=== PATIENT | male | born 1980 | race Caucasian/White ===

== ENCOUNTER 2017-02-23 14:14 | Emergency (ER) | payer BC, MEDICAID ==
[2017-02-23] MEDS ORDERED: Ketorolac 60 MG/2 ML SDV IM ONE (14:55)
--- NOTE | 2017-02-23 15:19 | EDM.PDOC ---
ED HPI LOWER BACK PAIN/INJURY - General Chief Complaint: Back Pain or Injury Stated Complaint: BACK Time Seen by Provider: 02/23/17 14:50 Source of Information: Reports: Patient History Limitations: Reports: No limitations - History of Present Illness INITIAL COMMENTS - FREE TEXT/NARRATIVE: History of present illness: [36-year-old male comes in complaining of acute low back pain radiating down to bilateral legs. Patient has a history of significant trauma to left leg and hip area approximately a year ago. Patient indicated it was a crushing injury on the [place] and he had altered gait for protracted period of time. Now he comes in with guarding, as well as symptoms of radiculopathy and some neuropathic pain.] Review of systems: As per history of present illness and below otherwise all systems reviewed and negative. Past medical history: As per history of present illness and as reviewed below otherwise noncontributory. Surgical history: As per history of present illness and as reviewed below otherwise noncontributory. Social history: No reported history of drug or alcohol abuse. Family history: As per history of present illness and as reviewed below otherwise noncontributory. Physical exam: HEENT: Atraumatic, normocephalic, pupils reactive, negative for conjunctival pallor or scleral icterus, mucous membranes moist, throat clear, neck supple, nontender, trachea midline. Lungs: Clear to auscultation, breath sounds equal bilaterally, chest nontender. Heart: S1S2, regular, negative for clicks, rubs, or JVD. Abdomen: Soft, nondistended, nontender. Negative for masses or hepatosplenomegaly. Negative for costovertebral tenderness. Pelvis: Stable nontender. Genitourinary: Deferred. Rectal: Deferred. Extremities: Atraumatic, negative for cords or calf pain. Neurovascular unremarkable. Neuro: Awake, alert, oriented. Cranial nerves II through XII unremarkable. Cerebellum unremarkable. Motor and sensory unremarkable throughout. Exam nonfocal. Global assessment is benign save some point tenderness at the base of spine and on venous distress. Patient indicates any limitations are secondary to avoidance of pain. Diagnostics: [X-ray of lumbar spine sacrum and coccyx] Therapeutics: [60 mg Toradol IM] Impression: [Back Pain] Plan: [Muscle relaxers and pain meds followup with PCP] Definitive disposition and diagnosis as appropriate pending reevaluation and review of above. - Related Data Allergies/ADRs: Allergies Allergy/AdvReac Type Severity Reaction Status Date / Time No Known Allergies Allergy Verified 02/23/17 14:27 Home Meds: Home Meds Orphenadrine [Norflex] 100 mg PO BID #30 tab.er 02/23/17 [Rx] Past Medical History - Past Health History Medical/Surgical History: Denies Medical/Surgical History Musculoskeletal History: Reports: Back pain, chronic Social & Family History - Family History Family Medical History: Noncontributory - Tobacco Use Smoking Status *Q: Current Every Day Smoker Years of Tobacco use: 8 - Recreational Drug Use Recreational Drug Use: No ED ROS GENERAL - Review of Systems Review Of Systems: See Below (See history of present illness) ED EXAM,LOWER BACK PAIN/INJURY - Physical Exam Exam: See Below (See history of present illness) Course - Vital Signs Last Recorded V/S: Last Vital Signs Temp 36.7 C 02/23/17 14:24 Pulse 85 02/23/17 14:24 Resp 16 02/23/17 14:24 BP 145/69 H 02/23/17 14:24 Pulse Ox 95 02/23/17 14:24 - Orders/Labs/Meds Orders: Active Orders 24 hr Category Date Time Status Lumbar Spine 2 or 3V [CR] Stat Exams 02/23/17 14:44 Taken Sacrum Coccyx Min 2V [CR] Stat Exams 02/23/17 14:44 Taken Ondansetron [Zofran ODT] Med 02/23/17 16:16 Ordered 8 mg PO ONETIME PRN Medication Orders Ondansetron HCl (Zofran Odt) 8 mg PO ONETIME PRN PRN Reason: Nausea/Vomiting Meds: Medications Generic Name Dose Route Start Last Admin Trade Name Freq PRN Reason Stop Dose Admin Ondansetron HCl 8 mg 02/23/17 16:16 Zofran Odt PO ONETIME PRN Nausea/Vomiting Discontinued Medications Generic Name Dose Route Start Last Admin Trade Name Freq PRN Reason Stop Dose Admin Ketorolac Tromethamine 60 mg 02/23/17 14:55 02/23/17 15:10 Toradol IM 02/23/17 14:56 60 mg ONETIME ONE Administration Morphine Sulfate 4 mg 02/23/17 16:15 Morphine IM 02/23/17 16:16 ONETIME ONE Departure - Departure Time of Disposition: 16:17 Disposition: Home, Self-Care 01 Condition: good Clinical Impression: Low back pain Qualifiers: Chronicity: acute Back pain laterality: bilateral Sciatica presence: with sciatica Sciatica laterality: bilateral sciatica Qualified Code(s): M54.42 - Lumbago with sciatica, left side; M54.41 - Lumbago with sciatica, right side Referrals: PCP,None [Primary Care Provider] - Gala Rosales PA [Physician Log Operations Coordinator] - Forms: ED Department Discharge Additional Instructions: The following information is given to patients seen in the emergency department who are being discharged to home. This information is to outline your options for follow-up care. We provide all patients seen in our emergency department with a follow-up referral. The need for follow-up, as well as the timing and circumstances, are variable depending upon the specifics of your emergency department visit. If you don't have a primary care physician on staff, we will provide you with a referral. We always advise you to contact your personal physician following an emergency department visit to inform them of the circumstance of the visit and for follow-up with them and/or the need for any referrals to a consulting specialist. The emergency department will also refer you to a specialist when appropriate. This referral assures that you have the opportunity for follow-up care with a specialist. All of these measure are taken in an effort to provide you with optimal care, which includes your follow-up. Under all circumstances we always encourage you to contact your private physician who remains a resource for coordinating your care. When calling for follow-up care, please make the office aware that this follow-up is from your recent emergency room visit. If for any reason you are refused follow-up, please contact the [facility] Emergency Department at and asked to speak to the emergency department charge nurse. Take medication as directed Followup with PCP in one to 2 days Turned ED as needed as discussed [facility] Primary Care [address] [place] [id number] - My Orders Last 24 Hours: My Active Orders 02/23/17 14:44 Lumbar Spine 2 or 3V [CR] Stat Sacrum Coccyx Min 2V [CR] Stat 02/23/17 16:16 Ondansetron [Zofran ODT] 8 mg PO ONETIME PRN - Assessment/Plan Last 24 Hours: My Active Orders 02/23/17 14:44 Lumbar Spine 2 or 3V [CR] Stat Sacrum Coccyx Min 2V [CR] Stat 02/23/17 16:16 Ondansetron [Zofran ODT] 8 mg PO ONETIME PRN
[2017-02-23] MEDS ORDERED: Morphine 2 MG/ML Syringe IM ONE (16:15)
[2017-02-23] MEDS ORDERED: Ondansetron 4 MG Tab.DIS PO PRN (16:16)
[2017-02-23 16:36] VITALS: BP 118/71
--- NOTE | 2017-02-23 16:43 | CR ---
EXAM DATE: 02/23/17 PATIENT'S AGE: 36 Patient: ANA ROSA GARCIA Facility: [place], [place] Site . Site : 1980 Study: XRay Spine Lumbar [id number]/10/2017 3:57:49 PM Ordering Physician: Doctor Dorantes Final Report: INDICATION: lower back pain TECHNIQUE: Lumbar spine 3 view COMPARISON: None FINDINGS: Bones: No fractures or significant bone lesions. Joints: Disc spaces and facets are unremarkable. Soft tissues: Unremarkable. IMPRESSION: No acute bony abnormality of the lumbar spine. Dictated by Julian Mccormick MD @ 02/23/2017 4:07:32 PM Dictated by: Julian Mccormick MD @ 02/23/2017 16:08:40 (Electronic Signature) Report Signed by Proxy and Original Signed Document filed in the Medical Record. [email or web address]
--- NOTE | 2017-02-23 16:44 | CR ---
EXAM DATE: 02/23/17 PATIENT'S AGE: 36 Patient: ANA ROSA GARCIA Facility: [place], [place] Site . Site : 1980 Study: XRay Spine sacrum [id number]/10/2017 3:58:42 PM Ordering Physician: Doctor Dorantes Final Report: INDICATION: lower back pain TECHNIQUE: Three views of the sacrum/coccyx COMPARISON: None FINDINGS: Bones: No fractures or bone lesions. Joint spaces: Unremarkable. Soft tissues: Unremarkable. IMPRESSION: No acute bony abnormality. Dictated by Julian Mccormick MD @ 02/23/2017 4:10:36 PM Dictated by: Julian Mccormick MD @ 02/23/2017 16:10:45 (Electronic Signature) Report Signed by Proxy and Original Signed Document filed in the Medical Record. MTDD
== END 2017-02-23 16:45 | disposition home or self-care (01) ==
LOC: MW.ED 14:14
DX: M54.41 Lumbago with sciatica, right side (principal); M54.42 Lumbago with sciatica, left side; F17.210 Nicotine dependence, cigarettes, uncomplicated
CPT/HCPCS: 72100; 72220; 96372; 99285; A9270; J1885; J2270; 99284

== ENCOUNTER 2017-02-24 00:56 | Emergency (ER) | payer SELFPAY ==
[2017-02-24] MEDS ORDERED: Sodium Chloride 0.9% 2.5 ML Syringe FLUSH PRN (01:25)
[2017-02-24] MEDS ORDERED: HYDROmorphone 2 MG/ML Syringe IVPUSH ONE (01:25)
[2017-02-24] MEDS ORDERED: Sodium Chloride 0.9% 10 ML Syringe FLUSH PRN (01:25)
[2017-02-24] MEDS ORDERED: Ondansetron 4 MG/2 ML SDV IVPUSH ONE (01:25)
[2017-02-24] MEDS ORDERED: Ketorolac 30 MG/ML SDV IVPUSH ONE (01:25)
--- NOTE | 2017-02-24 01:29 | EDM.PDOC ---
ED HPI GENERAL MEDICAL PROBLEM - General Chief Complaint: Back Pain or Injury Stated Complaint: BACK PAIN Time Seen by Provider: 02/24/17 01:17 - History of Present Illness INITIAL COMMENTS - FREE TEXT/NARRATIVE: HISTORY AND PHYSICAL: History of present illness: The patient is a 36 old male who presents with lumbar back pain radiating to his legs with radiculopathy for which he was seen earlier today for. Patient states he had a history of trauma 5 years ago since that time has had issues with his left hip and leg and has an unbalanced gait causing him to have on and off lower back pain. He says that once a year he gets discomfort like he is experiencing now but is never seen a physician or had an MRI to make a formal diagnosis. He says the pain is always localized in his lumbar spine and radiates to both buttock cheeks and down his legs and is doing similarly right now. He says it usually is worse on the left side and there is associated numbness and tingling on the left leg which is typical of his episodes. There is nothing new or different about this pain but it is not being controlled with the meds she received earlier, Norflex and [place]. He denies any flank pain he has no urinary retention or urinary issues and no bowel disturbances. He has had no anterior abdominal pain and has had no recent trauma. The patient states that the pain is just not controlled with the meds he received for discharge and got Toradol while he was here. I reviewed the chart and the x-rays that were performed, lumbar spine and coccyx films Please note that there is nothing new in the character or location of this pain is just that is more intense than usual; also the numbness that he is feeling and decreased sensation in his left leg is also not new Review of systems: As per history of present illness and below otherwise all systems reviewed and negative. Past medical history: As per history of present illness and as reviewed below otherwise noncontributory. Surgical history: As per history of present illness and as reviewed below otherwise noncontributory. Social history: No reported history of drug or alcohol abuse. Family history: As per history of present illness and as reviewed below otherwise noncontributory. Physical exam: General: Well-developed well nourished male who is nontoxic and looks uncomfortable in the room but is able to move in the bed with discomfort but without weakness or deficiencies. HEENT: Atraumatic, normocephalic, negative for conjunctival pallor or scleral icterus, mucous membranes moist, throat clear, neck supple, nontender, trachea midline. Lungs: Clear to auscultation, breath sounds equal bilaterally, chest nontender. Heart: S1S2, regular, negative for clicks, rubs, or JVD. Abdomen: Soft, nondistended, nontender. Negative for masses or hepatosplenomegaly. Negative for costovertebral tenderness. Pelvis: Stable nontender. Genitourinary: Deferred. Rectal: Normal perianal sensation, normal rectal tone push and squeeze Extremities: Atraumatic, negative for cords or calf pain. Neurovascular unremarkable. Neuro: Awake, alert, oriented. Cranial nerves II through XII unremarkable. Cerebellum unremarkable. Motor and sensory unremarkable throughout with a slight decreased sensation of the left lower extremity mostly below the knee. Patellar reflexes are +2/4 and brisk bilaterally. Dorsi and plantar flexion is intact 5/5 bilaterally inclusive of the great toe, inversion and eversion of the feet are also intact. Back: There are no midline step-offs in his defects the thoracic or lumbar spine and there is some reproducible tenderness at palpation of the lower lumbar sacral area and bilateral buttocks cheeks. Diagnostics: CT lumbar spine UA urine culture Therapeutics: Dilaudid Zofran Toradol andSolu- Medrol The patient states he is feeling better but is not completely gone. I've asked him about STD risks and he denies any so I will send a urine culture. I discussed with the patient his CT scan results and the need to get a nonemergent MRI as a followup as well as followup care with primary care. I will place him on a prednisone burst as well as Percocet for pain and give him off work today and tomorrow in an effort to get this under some control. The patient is aware of reasons to return to the ED and report and need for followup of this condition. Impression: Mild disc herniation L4-L5 with acute on chronic pain and radiculopathy Definitive disposition and diagnosis as appropriate pending reevaluation and review of above. Back Pain Score (Numeric/FACES): 10 - Related Data Allergies Allergy/AdvReac Type Severity Reaction Status Date / Time No Known Allergies Allergy Verified 02/24/17 01:22 Home Meds: Home Meds Orphenadrine [Norflex] 100 mg PO BID #30 tab.er 02/23/17 [Rx] Acetaminophen/HYDROcodone [[place] 325-5 MG] 1 tab PO Q6H 02/24/17 [History] Past Medical History - Past Health History Medical/Surgical History: Denies Medical/Surgical History Musculoskeletal History: Reports: Back pain, chronic Social & Family History - Family History Family Medical History: Noncontributory - Tobacco Use Smoking Status *Q: Current Every Day Smoker Years of Tobacco use: 8 Packs/Tins Daily: 1 - Caffeine Use Caffeine Use: Reports: Coffee, Tea - Recreational Drug Use Recreational Drug Use: No Drug Use in Last 12 Months: Yes Recreational Drug Type: Reports: Marijuana/Hashish ED ROS GENERAL - Review of Systems Review Of Systems: ROS reveals no pertinent complaints other than HPI. ED EXAM, GENERAL - Physical Exam Exam: See Below (See dictation) Course - Vital Signs Last Recorded V/S: Last Vital Signs Temp 36.7 C 02/24/17 01:19 Pulse 67 02/24/17 01:19 Resp 20 02/24/17 01:19 BP 139/63 02/24/17 01:19 Pulse Ox 97 02/24/17 01:19 - Orders/Labs/Meds Orders: Active Orders 24 hr Category Date Time Status Lumbar Spine wo Cont [CT] Stat Exams 02/24/17 01:24 Taken CULTURE URINE [RM] Stat Lab 02/24/17 03:09 Ordered Sodium Chloride 0.9% [Saline Flush] Med 02/24/17 01:25 Active 10 ml FLUSH ASDIRECTED PRN Sodium Chloride 0.9% [Saline Flush] Med 02/24/17 01:25 Active 2.5 ml FLUSH ASDIRECTED PRN Saline Lock Insert [OM.PC] Stat Oth 02/24/17 01:24 Ordered Medication Orders Sodium Chloride (Saline Flush) 10 ml FLUSH ASDIRECTED PRN PRN Reason: Keep Vein Open Last Admin: 02/24/17 01:54 Dose: 10 ml Sodium Chloride (Saline Flush) 2.5 ml FLUSH ASDIRECTED PRN PRN Reason: Keep Vein Open Last Admin: 02/24/17 01:54 Dose: 2.5 ml Labs: Laboratory Tests 02/24/17 Range/Units 02:47 Urine Color DARK YELLOW Urine Appearance SLT CLOUDY Urine pH 6.0 (5.0-8.0) Ur Specific [place] >= 1.030 (1.001-1.035) Urine Protein NEGATIVE (NEGATIVE) mg/dL Urine Glucose (UA) NEGATIVE (NEGATIVE) mg/dL Urine Ketones NEGATIVE (NEGATIVE) mg/dL Urine Occult Blood NEGATIVE (NEGATIVE) Urine Nitrite NEGATIVE (NEGATIVE) Urine Bilirubin NEGATIVE (NEGATIVE) Urine Urobilinogen 0.2 (<2.0) EU/dL Ur Leukocyte Esterase NEGATIVE (NEGATIVE) Urine RBC 0-2 (0-2/HPF) Urine WBC 2-5 (0-5/HPF) Ur Epithelial Cells OCCASIONAL (NONE-FEW) Urine Bacteria FEW (NEGATIVE) Urine Mucus HEAVY (NONE-MOD) Meds: Medications Generic Name Dose Route Start Last Admin Trade Name Freq PRN Reason Stop Dose Admin Sodium Chloride 10 ml 02/24/17 01:25 02/24/17 01:54 Saline Flush FLUSH 10 ml ASDIRECTED PRN Administration Keep Vein Open Sodium Chloride 2.5 ml 02/24/17 01:25 02/24/17 01:54 Saline Flush FLUSH 2.5 ml ASDIRECTED PRN Administration Keep Vein Open Discontinued Medications Generic Name Dose Route Start Last Admin Trade Name Freq PRN Reason Stop Dose Admin Hydromorphone HCl 1 mg 02/24/17 01:25 02/24/17 01:55 Dilaudid IVPUSH 02/24/17 01:26 1 mg ONETIME ONE Administration Ketorolac Tromethamine 30 mg 02/24/17 01:25 02/24/17 01:49 Toradol IVPUSH 02/24/17 01:26 30 mg ONETIME ONE Administration Methylprednisolone Sodium Succinate 125 mg 02/24/17 01:50 02/24/17 01:53 Solu-Medrol IVPUSH 02/24/17 01:51 125 mg ONETIME ONE Administration Ondansetron HCl 4 mg 02/24/17 01:25 02/24/17 01:49 Zofran IVPUSH 02/24/17 01:26 4 mg ONETIME ONE Administration Departure - Departure Time of Disposition: 03:17 Disposition: Home, Self-Care 01 Condition: good Clinical Impression: Intervertebral disc herniation Qualifiers: Spinal region: lumbosacral Qualified Code(s): M51.27 - Other intervertebral disc displacement, lumbosacral region Radiculopathy Qualifiers: Spinal region: lumbar Qualified Code(s): M54.16 - Radiculopathy, lumbar region Forms: ED Department Discharge Additional Instructions: The following information is given to patients seen in the emergency department who are being discharged to home. This information is to outline your options for follow-up care. We provide all patients seen in our emergency department with a follow-up referral. The need for follow-up, as well as the timing and circumstances, are variable depending upon the specifics of your emergency department visit. If you don't have a primary care physician on staff, we will provide you with a referral. We always advise you to contact your personal physician following an emergency department visit to inform them of the circumstance of the visit and for follow-up with them and/or the need for any referrals to a consulting specialist. The emergency department will also refer you to a specialist when appropriate. This referral assures that you have the opportunity for followup care with a specialist. All of these measure are taken in an effort to provide you with optimal care, which includes your followup. Under all circumstances we always encourage you to contact your private physician who remains a resource for coordinating your care. When calling for followup care, please make the office aware that this follow-up is from your recent emergency room visit. If for any reason you are refused follow-up, please contact the [facility] emergency department at and ask to speak to the emergency department charge nurse. [facility] Primary care- Internal Medicine and Family [address] [address] Please continue to use the medications you have, Norflex and [place], or stuffy [place] and add the Percocet as prescribed tonight. Please take the prednisone as directed. Please try to rest as much as possible but also try to stretch and move around intermittently to keep the area open and the muscles from spasming. Please call and followup with primary care for further evaluation and treatment of this problem and to schedule outpatient MRI. Return to ER as needed and as we discussed - My Orders Last 24 Hours: My Active Orders 02/24/17 01:24 Lumbar Spine wo Cont [CT] Stat Saline Lock Insert [OM.PC] Stat 02/24/17 01:25 Sodium Chloride 0.9% [Saline Flush] 10 ml FLUSH ASDIRECTED PRN Sodium Chloride 0.9% [Saline Flush] 2.5 ml FLUSH ASDIRECTED PRN 02/24/17 03:09 CULTURE URINE [RM] Stat - Assessment/Plan Last 24 Hours: My Active Orders 02/24/17 01:24 Lumbar Spine wo Cont [CT] Stat Saline Lock Insert [OM.PC] Stat 02/24/17 01:25 Sodium Chloride 0.9% [Saline Flush] 10 ml FLUSH ASDIRECTED PRN Sodium Chloride 0.9% [Saline Flush] 2.5 ml FLUSH ASDIRECTED PRN 02/24/17 03:09 CULTURE URINE [RM] Stat
[2017-02-24] MEDS ORDERED: methylPREDNISolone Sodium Succinate 125 MG/2 ML SDV IVPUSH ONE (01:50)
[2017-02-24 03:56] VITALS: BP 129/61
--- NOTE | 2017-02-24 14:36 | CT ---
EXAM DATE: 02/24/17 PATIENT'S AGE: 36 Patient: ANA ROSA GARCIA Facility: [place], [place] Site . Site : 1980 Study: CT Spine Lumbar WO CONT [id number]/11/2017 2:29:46 AM Ordering Physician: Kristi Eaton Final Report: INDICATION: Lower back pain since Thursday with no known injury. Radiculopathy and back pain more on the left. TECHNIQUE: CT lumbar spine without contrast. COMPARISON: None. FINDINGS: No acute fracture, malalignment or cortical bony central canal compromise. No suspicious lytic or sclerotic osseous lesion. There are minimal degenerative changes. Small posterior disc osteophyte complex at L5-S1. Mild diffuse disc bulge suspected at L4-5. Central canal has images otherwise unremarkable. Critical bony central canal compromise. Soft tissues elsewhere as imaged are unremarkable. IMPRESSION: No acute or suspicious osseous abnormality in the lumbar spine. Minimal degenerative changes. Small posterior disc osteophyte complex at L5-S1 and mild diffuse disc bulge suspected at L4-5. Followup nonemergent MRI of the lumbar spine could be considered for further evaluation as necessary. Dictated by Ethan Miller MD @ 02/24/2017 3:00:48 AM Dictated by: Ethan Miller MD @ 02/24/2017 03:02:53 (Electronic Signature) Report Signed by Proxy and Original Signed Document filed in the Medical Record. [facility]ITALRafael
== END 2017-02-24 03:51 | disposition home or self-care (01) ==
LOC: MW.ED 00:56
DX: M51.16 Intervertebral disc disorders with radiculopathy, lumbar region (principal); R20.8 Other disturbances of skin sensation; F17.200 Nicotine dependence, unspecified, uncomplicated; Z79.899 Other long term (current) drug therapy
CPT/HCPCS: 72131; 81001; 87086; 96374; 96375; 99284; J1170; J1885; J2405; J2930

== ENCOUNTER 2021-08-27 17:15 | Emergency (ER) | payer MEDICAID ==
[2021-08-27] MEDS ORDERED: Bupivacaine 0.5% 10 ML SDV INJECT ONE (19:31)
[2021-08-27] MEDS ORDERED: Diphtheria,Pertussis(Acell),Tetanus Vaccine 0.5 ML Syringe IM ONE (19:31)
--- NOTE | 2021-08-27 20:15 | EDM.PDOC ---
ED HPI GENERAL MEDICAL PROBLEM - General Chief Complaint: Upper Extremity Injury/Pain Stated Complaint: NAIL IN LT THUMB Time Seen by Provider: 08/27/21 19:21 Source of Information: Reports: Patient History Limitations: Reports: No Limitations - History of Present Illness INITIAL COMMENTS - FREE TEXT/NARRATIVE: HISTORY AND PHYSICAL: History of present illness: Patient is a 40-year-old male, who resents emergency room today with concern of a nail in the tissue of his left hand thumb. Patient states that he was using a nail gun to put together a fence and states that it went through his thumb. Patient states that he is fully able to move the thumb and did try to remove it at home but was unable to due to the pain. Patient states that he is not up-to-date on tetanus and would like to update this today. Patient denies fever, chills, chest pain, shortness of breath, or cough. Denies headache, neck stiff ness, change in vision, syncope, or near syncope. Denies nausea, vomiting, abdominal pain, diarrhea, constipation, or dysuria. Has not noted any blood in urine or stool. Patient has been eating and drinking appropriately. Review of systems: As per history of present illness and below otherwise all systems reviewed and negative. Past medical history: As per history of present illness and as reviewed below otherwise noncontributory. Surgical history: As per history of present illness and as reviewed below otherwise noncontributory. Social history: See social history for further information Family history: As per history of present illness and as reviewed below otherwise noncontributory. Physical exam: General: Patient is alert, oriented, and in no acute distress. Patient sitting comfortably on exam table. HEENT: Atraumatic, normocephalic, pupils equal and reactive bilaterally, negative for conjunctival pallor or scleral icterus, neck supple, nontender, trachea midline. No drooling or trismus noted. No meningeal signs. No hot potato voice noted. Lungs: Clear to auscultation, breath sounds equal bilaterally, chest nontender. Heart: S1S2, regular rate and rhythm without overt murmur Abdomen: Soft, nondistended, nontender. Negative for masses or hepatosplenomegaly. Negative for costovertebral tenderness. Pelvis: Stable nontender. Genitourinary: Deferred. Rectal: Deferred. Skin: Intact, warm, dry. No lesions or rashes noted. Extremities: There is a 4cm nail at the palmar aspect of the distal left hand thumb. This does involve the subcutaneous tissue; unsure if kole involvement for bone contact. Patient does have intact sensation to light and deep touch of the affected thumb and capillary refill less than 2 seconds of the affected thumb. Radial pulses grossly intact of the left upper extremity with capillary refill less than 2 seconds. Patient does have full range of motion complete left upper extremity including affected thumb. Otherwise, atraumatic, negative for cords or calf pain. Neurovascular unremarkable. Neuro: Awake, alert, oriented. Cranial nerves II through XII unremarkable. Cerebellum unremarkable. Motor and sensory unremarkable throughout. Exam nonfocal. Notes: Symptoms are prompt return to the ED thoroughly discussed with patient. Discussed importance for follow-up with a primary care provider. Voices understanding and is agreeable to plan of care. Denies any further questions or concerns at this time. Diagnostics: Thumb x-ray, left Therapeutics: Tdap, lidocaine/bupivacaine, digital block, foreign body removal, sterile dressing Prescription: Keflex Impression: Foreign body to left thumb, removed Plan: 1. Keep the area clean and dry. Continue to monitor for signs of infection as discussed. Take medication as prescribed. 2. Tylenol and/or ibuprofen as directed and as needed for pain management and discomfort. 3. Please follow-up with your primary care provider as discussed. Return to the ED as needed and as discussed. Definitive disposition and diagnosis as appropriate pending reevaluation and review of above. Left Finger-Thumb Pain Score (Numeric/FACES): 9 - Related Data Allergies Allergy/AdvReac Type Severity Reaction Status Date / Time No Known Allergies Allergy Verified 08/27/21 18:48 Home Meds: Home Meds Orphenadrine [Norflex] 100 mg PO BID #30 tab.er 02/23/17 [Rx] Acetaminophen/HYDROcodone [Cammal 325-5 MG] 1 tab PO Q6H 02/24/17 [History] cephALEXin [Keflex] 500 mg PO BID 10 Days #20 cap 08/27/21 [Rx] Past Medical History - Past Health History Medical/Surgical History: Denies Medical/Surgical History Musculoskeletal History: Reports: Back Pain, Chronic - Infectious Disease History Infectious Disease History: Reports: None Social & Family History - Family History Family Medical History: No Pertinent Family History - Tobacco Use Tobacco Use Status *Q: Current Every Day Tobacco User Years of Tobacco use: 15 Packs/Tins Daily: 0.5 - Caffeine Use Caffeine Use: Reports: Soda - Recreational Drug Use Recreational Drug Use: No Review of Systems - Review of Systems Review Of Systems: Comprehensive ROS is negative, except as noted in HPI. ED EXAM, GENERAL - Physical Exam Exam: See Below (see dictation) ED TRAUMA EXTREMITY PROCEDURES - Foreign Body Removal Indication:: Nail in the subcutaneous tissue of the left hand distal thumb Consent Obtained: Patient Performing Doctor:: Lyudmila Steward Foreign Body Other Location Comment:: Nail Anesthesia Type: Other (see below) (Digital block) Findings:: Nail successfully removed from the thumb, left. Patient tolerated procedure well. Complications:: No Course - Vital Signs Last Recorded V/S: Last Vital Signs Temp 97.9 F 08/27/21 18:49 Pulse 85 08/27/21 18:49 Resp 18 08/27/21 18:49 BP 141/71 H 08/27/21 18:49 Pulse Ox 95 08/27/21 18:49 - Orders/Labs/Meds Orders: Active Orders 24 hr Category Date Time Status Vaccine to be Administered/Admin Charge [RC] ASDIRECTED Care 08/27/21 19:31 Active Meds: Medications Discontinued Medications Generic Name Dose Route Start Last Admin Trade Name Chen PRN Reason Stop Dose Admin Bupivacaine HCl 10 ml 08/27/21 19:31 08/27/21 20:15 Bupivacaine 0.5% 10 Ml Sdv INJECT 08/27/21 19:32 10 ml ONETIME ONE Administration Diphtheria/Tetanus/Acell Pertussis 0.5 ml 08/27/21 19:31 08/27/21 20:13 Diphtheria,Pertussis(Acell),Tetanus Vaccine 0.5 Ml Syringe IM 08/27/21 19:32 0.5 ml .ONCE ONE Administration Lidocaine HCl 5 ml 08/27/21 19:31 08/27/21 20:15 Lidocaine 1% 5 Ml Sdv INJECT 08/27/21 19:32 5 ml ONETIME ONE Administration Departure - Departure Time of Disposition: 20:14 Disposition: Home, Self-Care 01 Clinical Impression: Foreign body (FB) in soft tissue - Discharge Information Prescriptions: cephALEXin [Keflex] 500 mg PO BID 10 Days #20 cap Instructions: Hand or Foot Foreign Body, Adult Referrals: Qamar Richardson MD [Primary Care Provider] - Forms: ED Department Discharge Additional Instructions: The following information is given to patients seen in the emergency department who are being discharged to home. This information is to outline your options for follow-up care. We provide all patients seen in our emergency department with a follow-up referral. The need for follow-up, as well as the timing and circumstances, are variable depending upon the specifics of your emergency department visit. If you don't have a primary care physician on staff, we will provide you with a referral. We always advise you to contact your personal physician following an emergency department visit to inform them of the circumstance of the visit and for follow-up with them and/or the need for any referrals to a consulting specialist. The emergency department will also refer you to a specialist when appropriate. This referral assures that you have the opportunity for follow-up care with a specialist. All of these measure are taken in an effort to provide you with optimal care, which includes your follow-up. Under all circumstances we always encourage you to contact your private physician who remains a resource for coordinating your care. When calling for follow-up care, please make the office aware that this follow-up is from your recent emergency room visit. If for any reason you are refused follow-up, please contact the [facility] Emergency Department at and asked to speak to the emergency department charge nurse. [facility] [address] [place] [id number] [facility] [address] [place] [id number] 1. Keep the area clean and dry. Continue to monitor for signs of infection as discussed. Take medication as prescribed. 2. Tylenol and/or ibuprofen as directed and as needed for pain management and discomfort. 3. Please follow-up with your primary care provider as discussed. Return to the ED as needed and as discussed. Sepsis Event Note (ED) - Evaluation Sepsis Screening Result: No Definite Risk - Focused Exam Vital Signs: Vital Signs Temp Pulse Resp BP Pulse Ox 08/27/21 18:49 97.9 F 85 18 141/71 H 95 - My Orders Last 24 Hours: My Active Orders 08/27/21 19:31 Vaccine to be Administered/Admin Charge [RC] ASDIRECTED - Assessment/Plan Last 24 Hours: My Active Orders 08/27/21 19:31 Vaccine to be Administered/Admin Charge [RC] ASDIRECTED
--- NOTE | 2021-08-27 20:21 | CR ---
Indication: Nail in thumb. Technique: Left hand 1st digit, 3 views. Comparison: None. Findings: There is a nail within the pad of the 1st digit. No acute fracture or dislocation. Joint spaces are well preserved. No significant soft tissue swelling. Impression: Nail within the pad of the 1st digit. No acute fracture. Dictated by Angelic Henry MD @ 08/27/2021 8:19:23 PM (Electronically Signed)
[2021-08-27 20:38] VITALS: BP 131/74; PULSE 72
== END 2021-08-27 20:38 | disposition home or self-care (01) ==
LOC: MW.ED 17:15
DX: S60.352A Superficial foreign body of left thumb, initial encounter (principal); Z72.0 Tobacco use; Z23 Encounter for immunization; W29.4XXA Contact with nail gun, initial encounter
CPT/HCPCS: 64450; 73140; 90471; 90715; 99283; J3490

== ENCOUNTER 2024-11-11 13:42 | Emergency (ER) | payer BC, MEDICAID ==
[2024-11-11] MEDS: Lidocaine 1% with EPINEPHrine 1:100,000 10 ML MDV INJECT ONE (13:58)
[2024-11-11 14:21] VITALS: BP 140/85; PULSE 79
== END 2024-11-11 14:21 | disposition home or self-care (01) ==
LOC: MW.ED 13:42
DX: S00.85XA Superficial foreign body of other part of head, initial encounter (principal); Z79.899 Other long term (current) drug therapy; Z75.8 Other problems related to medical facilities and other health care; W45.8XXA Other foreign body or object entering through skin, initial encounter
CPT/HCPCS: 64400; 99283-25; J3490